=== PATIENT | female | born 1940 | race Caucasian/White ===

== ENCOUNTER 2018-03-24 02:29 | Inpatient (IN) | payer MEDICARE, OTHER ==
[~2018-03-24] VITALS: Ht 162.6 cm; Wt 72.1 kg
[~2018-03-24 02:29] MED LIST: AMLO10TA6 PO; ANAS1TAB PO; ASPI81TA45 PO; ATOR40TA PO; GEMF600T4 PO; GLIP-33 PO; ISOS60TA PO; LISI5TAB7 PO; METF10002 PO; METO25TA35 PO; NEBI10TA3 PO; NITR0.4T28 SL; SPIR25TA5 PO; TICA90TA PO
[2018-03-24] MEDS ORDERED: HEPARIN 25,000 UNITS/500ML PMX 500 ML ONE (02:34)
[2018-03-24] MEDS ORDERED: NITROGLYCERIN/D5W PMX 250 ML ONE (02:34)
[2018-03-24] MEDS ORDERED: NEBI10TA3 PO (02:55)
[2018-03-24 03:24] LABS: BASOPHILS # (AUTO) 0.05 x10^3/uL (0-0.1); BASOPHILS % (AUTO) 1 % (0-1); EOSINOPHILS # (AUTO) 0.58 x10^3/uL (0-0.4); EOSINOPHILS % (AUTO) 7 % (1-7); LYMPHOCYTES # (AUTO) 1.36 x10^3/uL (1-3.4); LYMPHOCYTES % (AUTO) 16 % (22-44); MD NO; MEAN CORPUSCULAR HEMOGLOBIN 31.4 pg (27.0-34.8); MEAN CORPUSCULAR HGB CONC 33.8 g/dL (32.4-35.8); MEAN CORPUSCULAR VOLUME 92.9 fL (80-100); MONOCYTES # (AUTO) 0.59 x10^3/uL (0.2-0.8); MONOCYTES % (AUTO) 7 % (2-9); NEUTROPHILS # (AUTO) 5.92 x10^3/uL (1.8-6.8); NEUTROPHILS % (AUTO) 70 % (42-75); PLATELET COUNT 315 x10^3/uL (130-400); RED BLOOD COUNT 3.48 x10^6/uL (3.82-5.3); RED CELL DISTRIBUTION WIDTH 14.5 % (9.6-15.2)
[2018-03-24 03:31] LABS: ALBUMIN 3.8 g/dL (3.4-5.0); ANION GAP 9 mmol/L (5-15); CALCIUM 9.7 mg/dL (8.5-10.1); CHLORIDE 115 mmol/L (98-107)
[2018-03-24] MEDS ORDERED: NITROGLYCERIN/D5W PMX 250 ML IV SCH (04:37)
[2018-03-24] MEDS: SODIUM CHLORIDE 0.9% 1,000 ML IV SCH ×2 (04:53→23:00)
[2018-03-24] MEDS ORDERED: HEPARIN 25,000 UNITS/500ML PMX 500 ML IV PRN (05:00)
[2018-03-24] MEDS ORDERED: MORPHINE SULFATE 4 MG/ML, 1ML IVPush PRN (05:00)
[2018-03-24] MEDS ORDERED: NITROGLYCERIN 0.4 MG BOTTLE (25 TABS) SL PRN ×2 (05:00)
[2018-03-24] MEDS ORDERED: ONDANSETRON 2MG/ML, 2ML IVPush PRN (05:00)
[2018-03-24] MEDS ORDERED: POLYETHYLENE GLYCOL 17 GM PACKET PO PRN (05:00)
[2018-03-24] MEDS ORDERED: ACETAMINOPHEN 325 MG TABLET PO PRN (05:00)
[2018-03-24] MEDS ORDERED: DOCUSATE 100 MG CAPSULE PO PRN (05:00)
[2018-03-24] MEDS ORDERED: HEPARIN 5,000 UNITS/ML, 1ML IV ONE (05:00)
[2018-03-24] MEDS ORDERED: NITROGLYCERIN/D5W PMX 250 ML IV PRN (05:30)
[2018-03-24] MEDS ORDERED: ASPIRIN 325 MG TABLET EC PO SCH (06:00)
[2018-03-24] MEDS ORDERED: ASPIRIN 81 MG TABLET EC PO SCH (06:00)
[2018-03-24] MEDS: METOPROLOL TARTRATE 25 MG TABLET PO SCH ×2 (06:00→12:28)
[2018-03-24] MEDS ORDERED: METF500T17 PO (06:43)
[2018-03-24] MEDS ORDERED: SIMV20TA3 PO (06:43)
[2018-03-24] MEDS ORDERED: PRAV40TA2 PO (06:43)
[2018-03-24] MEDS ORDERED: CLOP75TA52 PO (06:43)
[2018-03-24] MEDS: INSULIN LISPRO 100 UNITS/ML, PEN SQ-INSULIN SCH ×4 (07:00→20:32)
[2018-03-24] MEDS ORDERED: NEBIVOLOL HCL 10 MG PO SCH (09:00)
[2018-03-24] MEDS: ISOSORBIDE MONONITRATE ER 60 MG TABLET PO SCH ×2 (09:00→20:32)
[2018-03-24] MEDS ORDERED: TICAGRELOR 90 MG TABLET PO SCH ×2 (09:00→11:30)
[2018-03-24] MEDS: AMLODIPINE 10 MG TAB PO SCH ×2 (09:00→12:29)
[2018-03-24] MEDS ORDERED: CLOPIDOGREL 75 MG TABLET PO SCH (09:00)
[2018-03-24] MEDS: ANASTROZOLE 1 MG TABLET PO SCH (09:00)
[2018-03-24] MEDS ORDERED: LISINOPRIL 5 MG TABLET PO SCH (09:00)
[2018-03-24] MEDS ORDERED: GLIPizide ER 5 MG TABLET PO SCH (09:00)
[2018-03-24] MEDS: GEMFIBROZIL 600 MG TABLET PO SCH (09:00)
[2018-03-24] MEDS ORDERED: MIDAZOLAM 1 MG/ML, 5ML ONE (09:57)
[2018-03-24] MEDS ORDERED: FENTANYL PF 100 MCG/2ML ONE (09:57)
[2018-03-24] MEDS ORDERED: VERAPAMIL 2.5 MG/ML, 2ML ONE (09:58)
[2018-03-24] MEDS ORDERED: BIVALIRUDIN 250 MG ONE ×2 (09:58→10:59)
[2018-03-24] MEDS ORDERED: NITROGLYCERIN 5 MG/ML, 10ML ONE (09:58)
[2018-03-24] MEDS ORDERED: ADENOSINE 6 MG/2 ML ONE (10:56)
[2018-03-24] MEDS ORDERED: BIVALIRUDIN 250 MG in DEXTROSE 5% 100 ML IV SCH (11:06)
[2018-03-24] MEDS ORDERED: TICAGRELOR 90 MG TABLET ONE (11:09)
[2018-03-24 12:42] LABS: ANION GAP 5 mmol/L (5-15); CALCIUM 9.5 mg/dL (8.5-10.1); CHLORIDE 112 mmol/L (98-107); CREATININE 1.15 mg/dL (0.55-1.02)
[2018-03-24] MEDS: TICAGRELOR 90 MG TABLET PO SCH (20:32)
[2018-03-25] MEDS: SODIUM CHLORIDE 0.9% 1,000 ML IV SCH (01:42)
[2018-03-25 04:35] LABS: BASOPHILS # (AUTO) 0.03 x10^3/uL (0-0.1); BASOPHILS % (AUTO) 0 % (0-1); EOSINOPHILS # (AUTO) 0.27 x10^3/uL (0-0.4); EOSINOPHILS % (AUTO) 3 % (1-7); LYMPHOCYTES # (AUTO) 1.25 x10^3/uL (1-3.4); LYMPHOCYTES % (AUTO) 14 % (22-44); MD NO; MEAN CORPUSCULAR HEMOGLOBIN 32.3 pg (27.0-34.8); MEAN CORPUSCULAR HGB CONC 34.6 g/dL (32.4-35.8); MEAN CORPUSCULAR VOLUME 93.3 fL (80-100); MEAN PLATELET VOLUME 7.8 fL (7.4-10.4); MONOCYTES # (AUTO) 0.77 x10^3/uL (0.2-0.8); MONOCYTES % (AUTO) 9 % (2-9); NEUTROPHILS % (AUTO) 75 % (42-75); PLATELET COUNT 308 x10^3/uL (130-400); RED BLOOD COUNT 3.07 x10^6/uL (3.82-5.3); RED CELL DISTRIBUTION WIDTH 14.3 % (9.6-15.2)
[2018-03-25 04:44] LABS: ANION GAP 10 mmol/L (5-15); CALCIUM 8.6 mg/dL (8.5-10.1); CHLORIDE 110 mmol/L (98-107)
[2018-03-25 04:49] LABS: CHOL/HDL RATIO 3.5; CHOLESTEROL, TOTAL 146 mg/dL (140-239); CREATININE 1.37 mg/dL (0.55-1.02); HDL CHOL % 29 % (28-40); HDL CHOLESTEROL (DIRECT) 42 mg/dL (40-60); LDL CHOLESTEROL,CALCULATED 80 mg/dL (54-169); LDL/HDL RATIO 1.9 (0.5-3.0); TRIGLYCERIDES 122 mg/dL (50-200); VLDL CHOLESTEROL 24 mg/dL (0-25)
[2018-03-25] MEDS: METOPROLOL TARTRATE 25 MG TABLET PO SCH (05:13)
[2018-03-25 05:26] VITALS: BP 145/62
[2018-03-25] MEDS ORDERED: MAGNESIUM SULFATE PMX 2GM/50ML 50 ML IV ONE (06:30)
[2018-03-25] MEDS: INSULIN LISPRO 100 UNITS/ML, PEN SQ-INSULIN SCH ×4 (07:00→21:00)
[2018-03-25 07:44] LABS: INTERNATIONAL NORMALIZED RATIO 1.1 (0.93-1.1); PROTHROMBIN TIME 11.6 Seconds (9.6-11.5)
[2018-03-25] MEDS: ASPIRIN 81 MG TABLET EC PO SCH (09:39)
[2018-03-25] MEDS: CARVEDILOL 12.5 MG TABLET PO SCH ×2 (09:39→17:59)
[2018-03-25] MEDS: LISINOPRIL 5 MG TABLET PO SCH (09:39)
[2018-03-25] MEDS: TICAGRELOR 90 MG TABLET PO SCH ×2 (09:40→21:03)
[2018-03-25] MEDS: AMLODIPINE 10 MG TAB PO SCH (09:40)
[2018-03-25] MEDS: GEMFIBROZIL 600 MG TABLET PO SCH (09:40)
[2018-03-25] MEDS: ISOSORBIDE MONONITRATE ER 60 MG TABLET PO SCH ×2 (09:41→21:03)
[2018-03-25] MEDS: ANASTROZOLE 1 MG TABLET PO SCH (09:41)
[2018-03-25 14:27] VITALS: BP 95/60
[2018-03-25 18:52] VITALS: BP 111/69
[2018-03-25] MEDS: PRAVASTATIN 40 MG TABLET PO SCH (21:03)
[2018-03-26] VITALS (10 sets, daily range): BP systolic 93–125; BP diastolic 49–74
[2018-03-26 05:36] LABS: ANION GAP 10 mmol/L (5-15); CALCIUM 8.6 mg/dL (8.5-10.1); CHLORIDE 107 mmol/L (98-107); CREATININE 1.64 mg/dL (0.55-1.02)
[2018-03-26] MEDS: CARVEDILOL 12.5 MG TABLET PO SCH ×2 (05:38→18:35)
[2018-03-26 05:55] LABS: BASOPHILS # (AUTO) 0.02 x10^3/uL (0-0.1); BASOPHILS % (AUTO) 0 % (0-1); EOSINOPHILS # (AUTO) 0.56 x10^3/uL (0-0.4); EOSINOPHILS % (AUTO) 8 % (1-7); LYMPHOCYTES % (AUTO) 16 % (22-44); MD NO; MEAN CORPUSCULAR HEMOGLOBIN 32.1 pg (27.0-34.8); MEAN CORPUSCULAR HGB CONC 34.5 g/dL (32.4-35.8); MEAN CORPUSCULAR VOLUME 93.1 fL (80-100); MONOCYTES # (AUTO) 0.66 x10^3/uL (0.2-0.8); MONOCYTES % (AUTO) 9 % (2-9); NEUTROPHILS # (AUTO) 4.97 x10^3/uL (1.8-6.8); NEUTROPHILS % (AUTO) 67 % (42-75); PLATELET COUNT 263 x10^3/uL (130-400); RED BLOOD COUNT 2.67 x10^6/uL (3.82-5.3); RED CELL DISTRIBUTION WIDTH 14.6 % (9.6-15.2)
[2018-03-26] MEDS: INSULIN LISPRO 100 UNITS/ML, PEN SQ-INSULIN SCH ×4 (07:21→19:38)
[2018-03-26] MEDS: ISOSORBIDE MONONITRATE ER 60 MG TABLET PO SCH (09:16)
[2018-03-26] MEDS: ANASTROZOLE 1 MG TABLET PO SCH (09:41)
[2018-03-26] MEDS: LISINOPRIL 5 MG TABLET PO SCH (09:45)
[2018-03-26] MEDS: TICAGRELOR 90 MG TABLET PO SCH ×2 (09:46→19:35)
[2018-03-26] MEDS: GEMFIBROZIL 600 MG TABLET PO SCH (09:46)
[2018-03-26] MEDS: ASPIRIN 81 MG TABLET EC PO SCH (09:46)
[2018-03-26] MEDS ORDERED: MAGNESIUM SULFATE PMX 2GM/50ML 50 ML IV ONE (17:00)
[2018-03-26] MEDS: PRAVASTATIN 40 MG TABLET PO SCH (19:35)
[2018-03-27 00:41] VITALS: BP 117/67
[2018-03-27 05:21] LABS: BASOPHILS # (AUTO) 0.04 x10^3/uL (0-0.1); BASOPHILS % (AUTO) 1 % (0-1); EOSINOPHILS # (AUTO) 0.53 x10^3/uL (0-0.4); EOSINOPHILS % (AUTO) 7 % (1-7); LYMPHOCYTES # (AUTO) 0.84 x10^3/uL (1-3.4); LYMPHOCYTES % (AUTO) 11 % (22-44); MD NO; MEAN CORPUSCULAR HEMOGLOBIN 31.8 pg (27.0-34.8); MEAN CORPUSCULAR HGB CONC 34.3 g/dL (32.4-35.8); MEAN CORPUSCULAR VOLUME 92.7 fL (80-100); MEAN PLATELET VOLUME 8.1 fL (7.4-10.4); MONOCYTES # (AUTO) 0.61 x10^3/uL (0.2-0.8); MONOCYTES % (AUTO) 8 % (2-9); NEUTROPHILS # (AUTO) 5.65 x10^3/uL (1.8-6.8); NEUTROPHILS % (AUTO) 74 % (42-75); PLATELET COUNT 272 x10^3/uL (130-400); RED BLOOD COUNT 2.94 x10^6/uL (3.82-5.3); RED CELL DISTRIBUTION WIDTH 14.4 % (9.6-15.2)
[2018-03-27 05:35] LABS: ANION GAP 9 mmol/L (5-15); CHLORIDE 112 mmol/L (98-107)
[2018-03-27 05:41] LABS: CREATININE 1.45 mg/dL (0.55-1.02)
[2018-03-27] MEDS: CARVEDILOL 12.5 MG TABLET PO SCH ×2 (06:45→17:42)
[2018-03-27] MEDS: INSULIN LISPRO 100 UNITS/ML, PEN SQ-INSULIN SCH ×4 (07:20→20:07)
[2018-03-27 07:53] VITALS: BP 100/56
[2018-03-27 08:02] VITALS: BP 90/55
[2018-03-27] MEDS: TICAGRELOR 90 MG TABLET PO SCH ×2 (08:37→20:06)
[2018-03-27] MEDS: LISINOPRIL 5 MG TABLET PO SCH (08:37)
[2018-03-27] MEDS: ASPIRIN 81 MG TABLET EC PO SCH (08:37)
[2018-03-27] MEDS ORDERED: ISOSORBIDE MONONITRATE ER 60 MG TABLET PO SCH (09:00)
[2018-03-27] MEDS ORDERED: AMLODIPINE 5 MG TABLET PO SCH (09:00)
[2018-03-27 14:00] VITALS: BP 138/54
[2018-03-27] MEDS: PRAVASTATIN 40 MG TABLET PO SCH (20:06)
[2018-03-27] MEDS: GEMFIBROZIL 600 MG TABLET PO SCH (20:06)
[2018-03-27 21:20] VITALS: BP 128/67
[2018-03-28 02:00] VITALS: BP 112/68
[2018-03-28] MEDS: CARVEDILOL 12.5 MG TABLET PO SCH (06:29)
[2018-03-28 08:02] VITALS: BP 136/75
[2018-03-28] MEDS: INSULIN LISPRO 100 UNITS/ML, PEN SQ-INSULIN SCH (08:18)
[2018-03-28] MEDS: ASPIRIN 81 MG TABLET EC PO SCH (08:31)
[2018-03-28] MEDS: TICAGRELOR 90 MG TABLET PO SCH (08:31)
[2018-03-28] MEDS ORDERED: LISINOPRIL 5 MG TABLET PO SCH (09:00)
[2018-03-28] MEDS ORDERED: LISI5TAB7 PO (09:27)
[2018-03-28] MEDS ORDERED: TICA90TA PO (09:27)
[2018-03-28] MEDS ORDERED: CARV12.543 PO (09:27)
== END 2018-03-28 11:20 | disposition home or self-care (01) | DRG 246 ==
LOC: ED 03:08 → SUATTDRO 04:51 → EDIP 04:56 → CCU 08:15 → 5SO 03-25 11:16 → DCLOUNGE 03-28 10:57
PROVIDERS: ADMIT Hospitalist; ATTEND Family Medicine
PROC: 027034Z Dilation of Coronary Artery, One Artery with Drug-eluting Intraluminal Device, Percutaneous Approach (ICD-10-PCS; principal; 2018-03-24)
PROC: 4A023N7 Measurement of Cardiac Sampling and Pressure, Left Heart, Percutaneous Approach (ICD-10-PCS; 2018-03-24)
PROC: B2111ZZ Fluoroscopy of Multiple Coronary Arteries using Low Osmolar Contrast (ICD-10-PCS; 2018-03-24)
PROC: B2151ZZ Fluoroscopy of Left Heart using Low Osmolar Contrast (ICD-10-PCS; 2018-03-24)
DX: T82.855A Stenosis of coronary artery stent, initial encounter (principal); I21.4 Non-ST elevation (NSTEMI) myocardial infarction; N17.9 Acute kidney failure, unspecified; I25.5 Ischemic cardiomyopathy; Z85.3 Personal history of malignant neoplasm of breast; Z90.710 Acquired absence of both cervix and uterus; I44.7 Left bundle-branch block, unspecified; I25.10 Atherosclerotic heart disease of native coronary artery without angina pectoris; I10 Essential (primary) hypertension; E78.5 Hyperlipidemia, unspecified; E11.9 Type 2 diabetes mellitus without complications; D64.9 Anemia, unspecified; Z87.891 Personal history of nicotine dependence; Z88.8 Allergy status to other drugs, medicaments and biological substances; E87.5 Hyperkalemia
CPT/HCPCS: 36415; 80048; 80061; 82040; 82962; 83735; 83880; 84100; 84484; 85025; 85520; 85610; 85730; 87081; 93005; 93306; 93458; 99156; 99157; 99291; C1769; C1894; C9600; G0378; J0153; J0583; J1644; J2250; J3010; C1725; C1874; C1887; J1815; J3475; J7030; Q9967

== ENCOUNTER → 2019-12-31 | Outpatient (CLI) | payer MEDICARE, OTHER ==
[~2019-12-31] MED LIST changes: -AMLO10TA6 PO; +AMLO10TA8 PO; +CARV12.543 PO; +CLOP75TA52 PO; -GEMF600T4 PO; +GEMF600T8 PO; +METF500T17 PO; +PRAV40TA2 PO; +SIMV20TA19 PO
== END | disposition home or self-care (01) ==
LOC: CVU 10:40
PROVIDERS: ATTEND Internal Medicine Cardiovascular Disease
DX: I11.9 Hypertensive heart disease without heart failure (principal); I08.3 Combined rheumatic disorders of mitral, aortic and tricuspid valves; I25.10 Atherosclerotic heart disease of native coronary artery without angina pectoris; E78.5 Hyperlipidemia, unspecified; I25.2 Old myocardial infarction; E11.9 Type 2 diabetes mellitus without complications; Z85.3 Personal history of malignant neoplasm of breast
CPT/HCPCS: 93306